=== PATIENT | male | born 1940 | race Caucasian/White ===

== ENCOUNTER 2019-07-07 11:31 | Outpatient (REF) | payer MEDICARE, SELFPAY ==
[2019-07-08 12:26] LABS: Anion Gap 12.3 mmol/L (3-11); BUN 39 mg/dL (7-18); CO2 21.7 mmol/L (21.0-32.0); CREATININE 2.02 mg/dL (0.70-1.30); Calcium 8.9 mg/dL (8.5-10.1); Chloride 102 mmol/L (98-107); Estimated GFR 32.02 (mL/min/1.73m2); Glucose 122 mg/dL (70-100); Potassium 4.3 mmol/L (3.5-5.1); Sodium 136 mmol/L (136-145)
== END 2019-07-07 11:51 ==
LOC: LBN 11:31
PROVIDERS: Visit Provider Urology
DX: I48.91 Unspecified atrial fibrillation (principal); Z43.2 Encounter for attention to ileostomy
CPT/HCPCS: 80048